=== PATIENT | female | born 1935 | race Caucasian/White ===

== ENCOUNTER → 2017-03-08 | Outpatient (REF) | payer MEDICARE | LOC: M SFHCADAM 10:17 | PROVIDERS: ATTEND Family Medicine | DX: E11.9 Type 2 diabetes mellitus without complications (principal) ==

== ENCOUNTER → 2017-06-07 | Outpatient (REF) | payer MEDICARE ==
[~2017-06-07] MED LIST: ALLO15TA; ASPI1TAB PO; BACT2OIN10 TOP; ERYTOIN8 EXT; FOLI1TAB4; GLIP5TAB8; LABE20TAB; LEVO100T5; LISI-542; METH2.5TA PO; PRED20TA; PREDOPD OD; VITA1CAP40
== END ==
LOC: M SFHCADAM 14:59
PROVIDERS: ATTEND Family Medicine
DX: E55.9 Vitamin D deficiency, unspecified (principal)

== ENCOUNTER 2017-06-16 18:36 | Emergency (ER) | payer MEDICARE ==
[~2017-06-16] VITALS: Ht 152.4 cm; Wt 69.0 kg
[2017-06-16] MEDS ORDERED: GLIP5TAB8 (18:55)
[2017-06-16] MEDS ORDERED: PRED20TA (18:55)
[2017-06-16] MEDS ORDERED: PREDOPD OD (18:55)
[2017-06-16] MEDS ORDERED: LISI-542 (18:55)
[2017-06-16] MEDS ORDERED: ALLO15TA (18:55)
[2017-06-16] MEDS ORDERED: ASPI1TAB PO (18:55)
[2017-06-16] MEDS ORDERED: LABE20TAB (18:55)
[2017-06-16] MEDS ORDERED: FOLI1TAB4 (18:55)
[2017-06-16] MEDS ORDERED: VITA1CAP40 (18:55)
[2017-06-16] MEDS ORDERED: METH2.5TA PO (18:55)
[2017-06-16] MEDS ORDERED: LEVO100T5 (18:55)
--- NOTE | 2017-06-16 21:10 | REPUSA ---
HISTORY: Trauma. TECHNIQUE: Multiple thin section helically-acquired axially-displayed and helically acquired coronall y displayed computed tomographic images of the face are obtained from the mandible through the fronta l sinuses, with images obtained at soft tissue and bone window. 2D reformatted images were performed. FINDINGS: Normal bony mineralization. No fractures. Normal orbits. Normal, clear paranasal sinuses. Normal oral and nasal cavities. Normal infratemporal fossa and deep parapharyngeal spaces with normal muscles of mastication. Normal parotid and submandibular glands. IMPRESSION: Normal examination of the face. Thank you for your kind referral of this patient
--- NOTE | 2017-06-16 21:10 | REPUSA ---
CLINICAL HISTORY: Trauma. TECHNIQUE: Multiple axial CT images were obtained through the brain without IV contrast material. COMMENTS: Note is made of a right forehead swelling. No skull fracture is seen. There is normal configuration of sella turcica. There are no intra or extra-axial collections. There is no mass effect or midline shift. There is no evidence of hematoma formation. No hydrocephalus is p resent. The ventricles are symmetrical. No abnormal calcifications are present. There is diffuse age-appropriate cerebellar and cerebral atrophy with proportionally dilated ventricl es and cortical sulci. There are bilateral periventricular and subcortical white matter hypolucencies compatible with mild c hronic microvascular disease. Otherwise, no significant focal abnormalities are seen either in the posterior fossa or supratentoria l compartment. IMPRESSION: 1. Age-appropriate cerebellar and cerebral atrophy. 2. Mild chronic microvascular disease. 3. Right forehead swelling. No skull fracture is seen. 4. No evidence of acute intracranial pathology. Thank you for your kind referral of this patient.
[2017-06-16] MEDS ORDERED: LIDOCAINE 1% SDV INJ 30 ML VIAL SC SCH (22:00)
[2017-06-16] MEDS ORDERED: LIDOCAINE W/EPINEPHRINE 1% 20ML VIAL SC ONE (22:00)
[2017-06-16] MEDS ORDERED: MUPIROCIN 2% OINT 22 GM TUBE TOP ONE (22:15)
[2017-06-16] MEDS ORDERED: ERYTHROMYCIN OPHTH OINT As Ordered ONE (22:16)
[2017-06-16] MEDS ORDERED: ERYTOIN8 EXT (22:39)
[2017-06-16] MEDS ORDERED: BACT2OIN10 TOP (22:39)
[2017-06-16] MEDS ORDERED: TETANUS/DIPHTHERIA TOX ADSORB ADULT 0.5ML SYR/VIAL (90714) IM ONE (22:45)
[2017-06-16 23:00] VITALS: BP 154/73
--- NOTE | 2017-06-17 08:47 | REP ---
Right hand series: Four views: History: Trauma. Findings: Four views of the right hand demonstrate an obliquely oriented fracture through the 5th metacarpal with some associated swelling. There is advanced diffuse osteoporosis. No other fractures seen. Chondrocalcinosis is noted at the radiocarpal articulation. Mild osteoarthritic changes are seen. Impression: 5th metacarpal fracture. Signed by Jorge Roque MD 06/17/2017 11:07 A
== END 2017-06-16 23:01 | disposition home or self-care (01) ==
LOC: EDBD 18:36 → M ED 18:36
DX: S62.306A Unspecified fracture of fifth metacarpal bone, right hand, initial encounter for closed fracture (principal); S01.81XA Laceration without foreign body of other part of head, initial encounter; W01.198A Fall on same level from slipping, tripping and stumbling with subsequent striking against other object, initial encounter; Y92.099 Unspecified place in other non-institutional residence as the place of occurrence of the external cause; Y93.01 Activity, walking, marching and hiking; Y99.9 Unspecified external cause status

== ENCOUNTER → 2017-07-07 | Outpatient (REF) | payer MEDICARE ==
[2017-07-07 21:00] LABS: ALBUMIN 3.3 GM/DL (3.2-5.2); ALBUMIN/GLOBULIN RATIO 1.22 (1.00-1.93); BILIRUBIN,TOTAL 1.2 MG/DL (0.2-1.0); CALCIUM LEVEL 8.6 MG/DL (8.8-10.2); CREATININE FOR GFR 1.26 MG/DL (0.55-1.02); GLOMERULAR FILTRATION RATE 43.2 (>32); POTASSIUM SERUM 4.6 MEQ/L (3.5-5.1)
[2017-07-07 21:02] LABS: BASO % 0.3 % (0.0-1.0); EOS # 0.2 K/mm3 (0.0-0.50); EOS % 1.7 % (0.0-3.0); LARGE UNSTAINED CELL # 0.1 K/mm3 (0.0-0.4); LARGE UNSTAINED CELL % 0.5 % (0.0-4.0); LYMPH # 0.6 K/mm3 (1.5-4.5); MEAN CORPUSCULAR HEMOGLOBIN 33.9 pg (27.0-33.0); MEAN CORPUSCULAR HGB CONC 33.2 g/dl (32.0-36.5); MEAN CORPUSCULAR VOLUME 102.1 fl (80.0-96.0); MONO # 0.3 K/mm3 (0.0-0.8); NEUTROPHILS # 9.2 K/mm3 (1.8-7.7); NEUTROPHILS % 89.5 % (36.0-66.0); PLATELET COUNT, AUTOMATED 107 k/mm3 (150-450); RED CELL DISTRIBUTION WIDTH 14.5 % (11.5-14.5); WHITE BLOOD COUNT 10.3 K/mm3 (4.0-10.0)
== END ==
LOC: M SFHCADAM 11:25
PROVIDERS: ATTEND Family Medicine
DX: R55 Syncope and collapse (principal); E11.9 Type 2 diabetes mellitus without complications

== ENCOUNTER → 2017-07-07 | Outpatient (CLI) | payer MEDICARE ==
--- NOTE | 2017-07-07 13:14 | REP ---
Clinical: Facial droop. Comparison: 06/16/2017 . Findings: Age-related atrophy and microvascular ischemic changes are appreciated. The ventricles and sulci are symmetric. Bowen-white differentiation is maintained. There is no evidence for acute intracranial hemorrhage, mass/mass effect, pathology or infarction. No extra-axial fluid collection. Calvarium is intact. Paranasal sinuses and mastoid air cells are clear. Impression: Age related atrophy and microvascular ischemic changes. No acute intracranial hemorrhage, infarction, or mass/mass effect. Signed by Nato Tran MD 07/07/2017 01:04 P
== END ==
LOC: M RAD 12:41
PROVIDERS: ATTEND Family Medicine
DX: R29.810 Facial weakness (principal); R55 Syncope and collapse; E11.9 Type 2 diabetes mellitus without complications
CPT/HCPCS: 70450; 80053; 83036; 85025; G0463

== ENCOUNTER 2017-08-11 17:15 | Emergency (ER) | payer MEDICARE ==
[~2017-08-11] VITALS: Ht 149.9 cm; Wt 68.2 kg
[2017-08-11 21:12] VITALS: BP 176/82
--- NOTE | 2017-08-12 10:16 | REP ---
Orbit series: Four views. History: Injury in a fall. Left orbit. Findings: Orbital margins are intact. The maxillary and frontal sinuses appear clear and their margins are intact as well. The patient is edentulous. No maxillary or facial fracture is appreciated. Impression: No facial fracture seen. Signed by Jorge Roque MD 08/12/2017 02:13 P
== END 2017-08-11 21:21 | disposition home or self-care (01) ==
LOC: M ED 17:15
DX: S05.12XA Contusion of eyeball and orbital tissues, left eye, initial encounter (principal); S51.012A Laceration without foreign body of left elbow, initial encounter; E03.9 Hypothyroidism, unspecified; E11.9 Type 2 diabetes mellitus without complications; J45.909 Unspecified asthma, uncomplicated; I10 Essential (primary) hypertension; W22.8XXA Striking against or struck by other objects, initial encounter; Y92.018 Other place in single-family (private) house as the place of occurrence of the external cause; Y99.9 Unspecified external cause status; Y93.9 Activity, unspecified; Z79.82 Long term (current) use of aspirin; Z79.899 Other long term (current) drug therapy; Z79.52 Long term (current) use of systemic steroids

== ENCOUNTER → 2017-11-20 | Outpatient (REF) | payer MEDICARE ==
[2017-11-20 20:53] LABS: BASO % 0.3 % (0.0-1.0); EOS # 0.4 10^3/uL (0.0-0.50); EOS % 3.9 % (0.0-3.0); HEMATOCRIT 34.8 % (36.0-47.0); HEMOGLOBIN 11.5 g/dl (12.0-16.0); IMMATURE GRANULOCYTE # 0.1 10^3/uL (0-0); IMMATURE GRANULOCYTE % 0.5 % (0-0); LYMPH # 1.2 10^3/uL (1.5-4.5); LYMPH % 11.7 % (24.0-44.0); MEAN CORPUSCULAR HEMOGLOBIN 31.9 pg (27.0-33.0); MEAN CORPUSCULAR VOLUME 96.7 fl (80.0-96.0); MONO # 0.6 10^3/uL (0.0-0.8); MONO % 6.1 % (0.0-5.0); NEUTROPHILS # 7.6 10^3/uL (1.8-7.7); NEUTROPHILS % 77.5 % (36.0-66.0); PLATELET COUNT, AUTOMATED 128 10^3/uL (150-450); RED CELL DISTRIBUTION WIDTH 13.3 % (11.5-14.5); WHITE BLOOD COUNT 9.8 10^3/uL (4.0-10.0)
[2017-11-20 21:03] LABS: ALBUMIN 3.7 GM/DL (3.2-5.2); ALBUMIN/GLOBULIN RATIO 1.23 (1.00-1.93); ALKALINE PHOSPHATASE 85 U/L (45-117); ALT/SGPT 16 U/L (12-78); ANION GAP 8 MEQ/L (8-16); AST/SGOT 18 U/L (7-37); BILIRUBIN,TOTAL 0.5 MG/DL (0.2-1.0); BLOOD UREA NITROGEN 31 MG/DL (7-18); CALCIUM LEVEL 9.1 MG/DL (8.8-10.2); CARBON DIOXIDE LEVEL 25 MEQ/L (21-32); CHLORIDE LEVEL 110 MEQ/L (98-107); CREATININE FOR GFR 1.32 MG/DL (0.55-1.02); GLOMERULAR FILTRATION RATE 40.8 (>32); GLUCOSE, FASTING 85 MG/DL (70-100); POTASSIUM SERUM 4.9 MEQ/L (3.5-5.1); SODIUM LEVEL 143 MEQ/L (136-145); TOTAL PROTEIN 6.7 GM/DL (6.4-8.2)
[2017-11-20 21:07] LABS: ESTIMATED AVERAGE GLUCOSE 123 MG/DL (60-110); HEMOGLOBIN A1c 5.9 %
[2017-11-20 21:31] LABS: MALB URINE SIEMENS 70.3 MG/L; MAU/CREAT RATIO 62.2 MCG/MG (0.0-30.0)
== END ==
LOC: M SFHCADAM 16:23
DX: E11.22 Type 2 diabetes mellitus with diabetic chronic kidney disease (principal); N18.9 Chronic kidney disease, unspecified; Z79.84 Long term (current) use of oral hypoglycemic drugs; Z63.4 Disappearance and death of family member
CPT/HCPCS: 80053

== ENCOUNTER → 2018-01-11 | Outpatient (CLI) | payer MEDICARE | LOC: M CARPUL 09:23 | DX: R01.1 Cardiac murmur, unspecified (principal); I51.7 Cardiomegaly; R93.1 Abnormal findings on diagnostic imaging of heart and coronary circulation | CPT/HCPCS: 93306 ==

== ENCOUNTER → 2018-02-14 | Outpatient (REF) | payer MEDICARE ==
[2018-02-14 20:13] LABS: ALBUMIN 3.8 GM/DL (3.2-5.2); ALBUMIN/GLOBULIN RATIO 1.41 (1.00-1.93); ALKALINE PHOSPHATASE 97 U/L (45-117); ALT/SGPT 24 U/L (12-78); ANION GAP 8 MEQ/L (8-16); AST/SGOT 23 U/L (7-37); BILIRUBIN,TOTAL 0.7 MG/DL (0.2-1.0); BLOOD UREA NITROGEN 30 MG/DL (7-18); CALCIUM LEVEL 8.8 MG/DL (8.8-10.2); CARBON DIOXIDE LEVEL 26 MEQ/L (21-32); CHLORIDE LEVEL 112 MEQ/L (98-107); CREATININE FOR GFR 1.28 MG/DL (0.55-1.30); GLOMERULAR FILTRATION RATE 42.3 (>32); GLUCOSE, FASTING 107 MG/DL (70-100); POTASSIUM SERUM 4.7 MEQ/L (3.5-5.1); SODIUM LEVEL 146 MEQ/L (136-145); TOTAL PROTEIN 6.5 GM/DL (6.4-8.2)
[2018-02-14 20:23] LABS: ESTIMATED AVERAGE GLUCOSE 97 MG/DL (60-110)
== END ==
LOC: M SFHCADAM 13:30
DX: E11.69 Type 2 diabetes mellitus with other specified complication (principal)
CPT/HCPCS: 80053

== ENCOUNTER 2018-05-08 10:59 | Emergency (ER) | payer MEDICARE | END 2018-05-08 13:07 | disposition home or self-care (01) | LOC: M ED 10:59 | DX: S22.088A Other fracture of T11-T12 vertebra, initial encounter for closed fracture (principal); M16.0 Bilateral primary osteoarthritis of hip; M85.851 Other specified disorders of bone density and structure, right thigh; M85.852 Other specified disorders of bone density and structure, left thigh; M85.842 Other specified disorders of bone density and structure, left hand; W01.0XXA Fall on same level from slipping, tripping and stumbling without subsequent striking against object, initial encounter; Y92.410 Unspecified street and highway as the place of occurrence of the external cause; I10 Essential (primary) hypertension; E11.9 Type 2 diabetes mellitus without complications; J45.909 Unspecified asthma, uncomplicated; K21.9 Gastro-esophageal reflux disease without esophagitis; E03.9 Hypothyroidism, unspecified; M81.0 Age-related osteoporosis without current pathological fracture; H33.20 Serous retinal detachment, unspecified eye; M54.9 Dorsalgia, unspecified; Z79.899 Other long term (current) drug therapy; Z79.82 Long term (current) use of aspirin | CPT/HCPCS: 73130 ==

== ENCOUNTER → 2018-05-30 | Outpatient (REF) | payer MEDICARE ==
[2018-05-30 13:32] LABS: ESTIMATED AVERAGE GLUCOSE 123 MG/DL (60-110); HEMOGLOBIN A1c 5.9 %
== END ==
LOC: M SFHCADAM 10:48
DX: E11.9 Type 2 diabetes mellitus without complications (principal)
CPT/HCPCS: 83036

== ENCOUNTER → 2018-07-06 | Outpatient (REF) | payer MEDICARE ==
[2018-07-06 21:02] LABS: MAU/CREAT RATIO 47.1 MCG/MG (0.0-30.0)
== END ==
LOC: M SFHCADAM 10:27
DX: E11.9 Type 2 diabetes mellitus without complications (principal)
CPT/HCPCS: 82043

== ENCOUNTER → 2018-09-03 | Outpatient (REF) | payer MEDICARE ==
[2018-09-03 14:43] LABS: ALBUMIN 3.3 GM/DL (3.2-5.2); ALBUMIN/GLOBULIN RATIO 1.14 (1.00-1.93); ALKALINE PHOSPHATASE 113 U/L (45-117); ALT/SGPT 16 U/L (12-78); ANION GAP 9 MEQ/L (8-16); AST/SGOT 18 U/L (7-37); BILIRUBIN,TOTAL 0.7 MG/DL (0.2-1.0); BLOOD UREA NITROGEN 31 MG/DL (7-18); CALCIUM LEVEL 8.7 MG/DL (8.8-10.2); CARBON DIOXIDE LEVEL 23 MEQ/L (21-32); CHLORIDE LEVEL 111 MEQ/L (98-107); CREATININE FOR GFR 1.43 MG/DL (0.55-1.30); GLOMERULAR FILTRATION RATE 37.2 (>32); GLUCOSE, FASTING 136 MG/DL (70-100); POTASSIUM SERUM 4.8 MEQ/L (3.5-5.1); SODIUM LEVEL 143 MEQ/L (136-145); TOTAL PROTEIN 6.2 GM/DL (6.4-8.2)
[2018-09-03 16:28] LABS: ESTIMATED AVERAGE GLUCOSE 134 MG/DL (60-110); HEMOGLOBIN A1c 6.3 %
== END ==
LOC: M SFHCADAM 10:34
DX: E11.69 Type 2 diabetes mellitus with other specified complication (principal)
CPT/HCPCS: 80053

== ENCOUNTER 2018-10-01 10:28 | Emergency (ER) | payer MEDICARE ==
[2018-10-01] MEDS: ADACEL/BOOSTRIX VACCINE (DIPHTH/PERTUSS/ACELL/TETANUS)0.5ML SYR (90715) IM (10:59)
[2018-10-01] MEDS: NS 1,000 ML IV (11:30)
[2018-10-01 11:33] LABS: BASO % 0.2 % (0.0-1.0); EOS # 0.3 10^3/uL (0.0-0.50); EOS % 3.8 % (0.0-3.0); HEMATOCRIT 29.8 % (36.0-47.0); HEMOGLOBIN 9.9 g/dl (12.0-15.5); IMMATURE GRANULOCYTE % 0.4 % (0-3.0); LYMPH # 0.8 10^3/uL (1.5-4.5); LYMPH % 9.3 % (24.0-44.0); MEAN CORPUSCULAR HEMOGLOBIN 33.4 pg (27.0-33.0); MEAN CORPUSCULAR HGB CONC 33.2 g/dl (32.0-36.5); MEAN CORPUSCULAR VOLUME 100.7 fl (80.0-96.0); MONO # 0.4 10^3/uL (0.0-0.8); MONO % 4.5 % (0.0-5.0); NEUTROPHILS # 7.4 10^3/uL (1.8-7.7); NEUTROPHILS % 81.8 % (36.0-66.0); RED BLOOD COUNT 2.96 10^6/uL (4.00-5.40); RED CELL DISTRIBUTION WIDTH 13.9 % (11.5-14.5)
[2018-10-01] MEDS: ONDANSETRON 4MG/2ML VIAL (J2405) IV (11:41)
[2018-10-01] MEDS: MORPHINE 2 MG/ML 1ML SYRINGE (J2270) IV ×2 (11:41→12:07)
[2018-10-01 11:59] LABS: ALBUMIN 3.3 GM/DL (3.2-5.2); ALKALINE PHOSPHATASE 98 U/L (45-117); ALT/SGPT 15 U/L (12-78); ANION GAP 6 MEQ/L (8-16); AST/SGOT 19 U/L (7-37); BILIRUBIN,TOTAL 0.9 MG/DL (0.2-1.0); BLOOD UREA NITROGEN 36 MG/DL (7-18); CALCIUM LEVEL 8.9 MG/DL (8.8-10.2); CARBON DIOXIDE LEVEL 24 MEQ/L (21-32); CHLORIDE LEVEL 113 MEQ/L (98-107); CREATININE FOR GFR 1.29 MG/DL (0.55-1.30); GLOMERULAR FILTRATION RATE 41.9 (>32); GLUCOSE, FASTING 180 MG/DL (70-100); INR 1.06; POTASSIUM SERUM 4.6 MEQ/L (3.5-5.1); PROTHROMBIN TIME 13.9 SECONDS (12.1-14.4); SODIUM LEVEL 143 MEQ/L (136-145); TOTAL PROTEIN 6.3 GM/DL (6.4-8.2)
[2018-10-01 12:00] LABS: PLATELET COUNT, AUTOMATED 86 10^3/uL (150-450)
[2018-10-01 12:48] LABS: IMMATURE PLATELET FRACTION % 2.2 % (0.0-9.6)
== END 2018-10-01 12:08 | disposition short-term general hospital (02) ==
LOC: M ED 10:28
DX: S02.2XXA Fracture of nasal bones, initial encounter for closed fracture (principal); S00.93XA Contusion of unspecified part of head, initial encounter; W18.39XA Other fall on same level, initial encounter; Y92.410 Unspecified street and highway as the place of occurrence of the external cause; I10 Essential (primary) hypertension; E11.9 Type 2 diabetes mellitus without complications; J45.909 Unspecified asthma, uncomplicated; E07.9 Disorder of thyroid, unspecified; Z79.899 Other long term (current) drug therapy; Z79.890 Hormone replacement therapy
CPT/HCPCS: 90715

== ENCOUNTER → 2018-10-19 | Outpatient (REF) | payer MEDICARE ==
[2018-10-19 12:17] LABS: BASO % 0.4 % (0.0-1.0); EOS # 0.3 10^3/uL (0.0-0.50); EOS % 3.2 % (0.0-3.0); HEMATOCRIT 26.7 % (36.0-47.0); HEMOGLOBIN 8.7 g/dl (12.0-15.5); IMMATURE GRANULOCYTE % 0.4 % (0-3.0); LYMPH # 1.1 10^3/uL (1.5-4.5); LYMPH % 12.6 % (24.0-44.0); MEAN CORPUSCULAR HEMOGLOBIN 33.1 pg (27.0-33.0); MEAN CORPUSCULAR HGB CONC 32.6 g/dl (32.0-36.5); MEAN CORPUSCULAR VOLUME 101.5 fl (80.0-96.0); MONO # 0.4 10^3/uL (0.0-0.8); MONO % 4.8 % (0.0-5.0); NEUTROPHILS # 6.7 10^3/uL (1.8-7.7); NEUTROPHILS % 78.6 % (36.0-66.0); PLATELET COUNT, AUTOMATED 135 10^3/uL (150-450); RED BLOOD COUNT 2.63 10^6/uL (4.00-5.40); RED CELL DISTRIBUTION WIDTH 14.2 % (11.5-14.5); WHITE BLOOD COUNT 8.5 10^3/uL (4.0-10.0)
[2018-10-19 12:21] LABS: ANION GAP 11 MEQ/L (8-16); BLOOD UREA NITROGEN 26 MG/DL (7-18); CALCIUM LEVEL 8.5 MG/DL (8.8-10.2); CARBON DIOXIDE LEVEL 20 MEQ/L (21-32); CHLORIDE LEVEL 111 MEQ/L (98-107); GLOMERULAR FILTRATION RATE 38.1 (>32); GLUCOSE, FASTING 166 MG/DL (70-100); POTASSIUM SERUM 4.7 MEQ/L (3.5-5.1); SODIUM LEVEL 142 MEQ/L (136-145)
== END ==
LOC: M SFHCADAM 10:16
DX: S06.5X0D Traumatic subdural hemorrhage without loss of consciousness, subsequent encounter (principal)
CPT/HCPCS: 80048

== ENCOUNTER → 2018-10-19 | Outpatient (CLI) | payer MEDICARE | LOC: M ADAMS 10:24 | DX: S06.5X0D Traumatic subdural hemorrhage without loss of consciousness, subsequent encounter (principal) ==

== ENCOUNTER → 2018-12-04 | Outpatient (CLI) | payer MEDICARE ==
[~2018-12-04] MED LIST changes: +ACID1TAB10 PO; +CVS8.6TA5 PO; +FOLI1TAB11; -FOLI1TAB4; +HYDR200T3 PO; +METH2.5T48 PO; -METH2.5TA PO; +MIRA3350 PO; +NITR0.4S14 SL; +STOO100C PO; -VITA1CAP40; +VITA50005; +ZYLO300T6 PO
--- NOTE | 2018-12-04 10:00 | REP ---
CT Head without contrast HISTORY: Subdural hematoma COMPARISON: 10/01/2018 Areas of decreased attenuation are present in the periventricular white matter. This represents small-vessel ischemic disease. There is no intraparenchymal hemorrhage, acute infarct, mass or midline shift. The ventricular system the ventricular system and cortical sulci are dilated consistent with minimal volume loss. There is no extra cerebral collection. There is no fracture. The visualized sinuses are clear. IMPRESSION: 1. Small vessel ischemic disease. 2. Minimal volume loss. 3. There has been resolution of the previously noted right frontal subdural hematoma Electronically Signed by Michael Gray MD 12/04/2018 09:51 A
== END ==
LOC: M RAD 09:28
PROVIDERS: ATTEND Family Medicine
DX: I62.00 Nontraumatic subdural hemorrhage, unspecified (principal)

== ENCOUNTER → 2018-12-13 | Outpatient (CLI) | payer MEDICARE ==
--- NOTE | 2018-12-13 14:47 | REP ---
AP LATERAL RIGHT HIP, TWO VIEWS: HISTORY: Hip pain. There is no acute fracture or dislocation. There is minimal narrowing of the joint space with associated osteophyte formation. The bony structure is osteopenic. IMPRESSION:Degenerative changes as described above. Electronically Signed by Michael Gray MD 12/13/2018 02:55 P
--- NOTE | 2018-12-13 14:49 | REP ---
LUMBAR SPINE, THREE VIEWS: HISTORY: Back pain. There is no acute fracture or subluxation. There is an old compression fracture of the T11 vertebral body with severe height loss. The lumbar intervertebral discs are decreased in height. Vacuum phenomenon is present at the L1-2 level. These findings are consistent with disc degeneration. Osteophytes are present throughout the lumbar spine. There is scoliosis convex to the right. The bony structure is osteopenic. IMPRESSION: Degenerative change as described above. Electronically Signed by Michael Gray MD 12/13/2018 02:55 P
== END ==
LOC: M ADAMS 10:24
PROVIDERS: ATTEND Family Medicine
DX: M25.78 Osteophyte, vertebrae (principal); M25.751 Osteophyte, right hip; M25.551 Pain in right hip; M54.41 Lumbago with sciatica, right side

== ENCOUNTER → 2018-12-13 | Outpatient (REF) | payer MEDICARE ==
[2018-12-13 15:11] LABS: HEMOGLOBIN A1c 5.7 %
== END ==
LOC: M SFHCADAM 11:11
PROVIDERS: ATTEND Family Medicine
DX: E11.9 Type 2 diabetes mellitus without complications (principal)

== ENCOUNTER → 2019-03-22 | Outpatient (REF) | payer MEDICARE ==
[~2019-03-22] MED LIST changes: -ALLO15TA; +ALLO300T2; -ASPI1TAB PO; +ASPI81TA26 PO; -CVS8.6TA5 PO; +SENN-85 PO
[2019-03-22 21:15] LABS: BLOOD UREA NITROGEN 29 MG/DL (7-18); C REACTIVE PROTEIN QUANTITATIV 1.92 MG/DL (0.00-0.30); CALCIUM LEVEL 8.6 MG/DL (8.8-10.2); CARBON DIOXIDE LEVEL 24 MEQ/L (21-32); CHLORIDE LEVEL 112 MEQ/L (98-107); CREATININE FOR GFR 1.27 MG/DL (0.55-1.30); GLOMERULAR FILTRATION RATE 42.6 (>32); GLUCOSE, FASTING 113 MG/DL (70-100); POTASSIUM SERUM 5.1 MEQ/L (3.5-5.1); RHEUMATOID FACTOR QUANT < 10.0 IU/ML (<15.0); SODIUM LEVEL 143 MEQ/L (136-145)
[2019-03-22 21:21] LABS: HEMOGLOBIN A1c 5.6 %
== END ==
LOC: M SFHCADAM 11:41
PROVIDERS: ATTEND Family Medicine
DX: M06.9 Rheumatoid arthritis, unspecified (principal); E11.9 Type 2 diabetes mellitus without complications; S06.5X0D Traumatic subdural hemorrhage without loss of consciousness, subsequent encounter

== ENCOUNTER → 2019-06-05 | Outpatient (REF) | payer MEDICARE ==
[~2019-06-05] MED LIST changes: +MM S100C PO; -STOO100C PO
== END ==
LOC: M SFHCADAM 10:56
PROVIDERS: ATTEND Physician Assistant Medical
DX: M15.9 Polyosteoarthritis, unspecified (principal)

== ENCOUNTER → 2019-09-19 | Outpatient (REF) | payer MEDICARE ==
[2019-09-19 17:18] LABS: BASO % 0.3 % (0.0-1.0); EOS # 0.2 10^3/uL (0.0-0.5); EOS % 2.5 % (0.0-3.0); HEMATOCRIT 31.6 % (36.0-47.0); HEMOGLOBIN 10.3 g/dl (12.0-15.5); LYMPH # 1.1 10^3/uL (1.5-5.0); LYMPH % 11.1 % (24.0-44.0); MEAN CORPUSCULAR HEMOGLOBIN 34.7 pg (27.0-33.0); MEAN CORPUSCULAR HGB CONC 32.6 g/dl (32.0-36.5); MEAN CORPUSCULAR VOLUME 106.4 fl (80.0-96.0); MONO # 0.5 10^3/uL (0.0-0.8); MONO % 5.1 % (0.0-5.0); NEUTROPHILS # 7.6 10^3/uL (1.5-8.5); NEUTROPHILS % 80.2 % (36.0-66.0); PLATELET COUNT, AUTOMATED 119 10^3/uL (150-450); RED BLOOD COUNT 2.97 10^6/uL (4.00-5.40); WHITE BLOOD COUNT 9.5 10^3/uL (4.0-10.0)
[2019-09-19 17:26] LABS: HEMOGLOBIN A1c 5.8 %
[2019-09-19 17:48] LABS: ALBUMIN 3.7 GM/DL (3.2-5.2); BILIRUBIN,TOTAL 0.6 MG/DL (0.2-1.0); CALCIUM LEVEL 9.2 MG/DL (8.8-10.2); CREATININE FOR GFR 1.41 MG/DL (0.55-1.30); GLOMERULAR FILTRATION RATE 37.7 (>32); MAU/CREAT RATIO 104.7 MCG/MG (0.0-30.0); POTASSIUM SERUM 5.4 MEQ/L (3.5-5.1); THYROID STIMULATING HORMONE 2.12 uIU/ML (0.358-3.740); TOTAL 25(OH) VITAMIN D 26.3 NG/ML (30.0-100.0); TOTAL PROTEIN 6.5 GM/DL (6.4-8.2)
[2019-09-19 20:21] LABS: ERYTHROCYTE SEDIMENTATION RATE 60 mm/hr (0-30)
== END ==
LOC: M SFHCADAM 12:17
PROVIDERS: ATTEND Family Medicine
DX: E11.9 Type 2 diabetes mellitus without complications (principal); I12.9 Hypertensive chronic kidney disease with stage 1 through stage 4 chronic kidney disease, or unspecified chronic kidney disease; N18.9 Chronic kidney disease, unspecified; E55.9 Vitamin D deficiency, unspecified

== ENCOUNTER → 2021-01-22 | Outpatient (CLI) | payer MEDICARE ==
[~2021-01-22] MED LIST changes: -LISI-542; +LISI-898
--- NOTE | 2021-01-22 15:29 | REP ---
INDICATION: PAIN IN RIGHT KNEE COMPARISON: None. TECHNIQUE: Four views right knee. FINDINGS: There is no evidence of acute fracture, dislocation, or intrinsic bone disease.There is moderate diffuse joint space narrowing with subchondral sclerosis and spurring. 3 subcentimeter rounded calcifications are seen along the medial femoral condyle. Ill-defined periarticular calcifications are seen along the lateral margin of the joint. Diffuse vascular calcifications are present. There is mild superior and inferior patellar spurring. There is moderate joint effusion. IMPRESSION: No fracture or dislocation. Moderate arthritic changes. Moderate joint effusion. <Electronically signed by Agustin Bowen > 01/22/21 [id number]
== END ==
LOC: M ADAMS 11:12
PROVIDERS: ATTEND Physician Assistant
DX: M17.11 Unilateral primary osteoarthritis, right knee (principal); M25.461 Effusion, right knee; M25.561 Pain in right knee; G89.29 Other chronic pain; E11.9 Type 2 diabetes mellitus without complications; N18.9 Chronic kidney disease, unspecified; I12.9 Hypertensive chronic kidney disease with stage 1 through stage 4 chronic kidney disease, or unspecified chronic kidney disease; E03.9 Hypothyroidism, unspecified

== ENCOUNTER → 2021-01-22 | Outpatient (REF) | payer MEDICARE ==
[2021-01-22 16:43] LABS: BASO % 0.4 % (0.0-1.0); EOS # 0.4 10^3/uL (0.0-0.5); EOS % 4.6 % (0.0-3.0); HEMATOCRIT 33.7 % (36.0-47.0); HEMOGLOBIN 10.5 g/dl (12.0-15.5); LYMPH # 1.2 10^3/uL (1.5-5.0); MEAN CORPUSCULAR HEMOGLOBIN 33.1 pg (27.0-33.0); MEAN CORPUSCULAR HGB CONC 31.2 g/dl (32.0-36.5); MEAN CORPUSCULAR VOLUME 106.3 fl (80.0-96.0); MONO # 0.5 10^3/uL (0.0-0.8); MONO % 6.3 % (2.0-8.0); NEUTROPHILS # 5.5 10^3/uL (1.5-8.5); NEUTROPHILS % 72.3 % (36.0-66.0); PLATELET COUNT, AUTOMATED 106 10^3/uL (150-450); RED BLOOD COUNT 3.17 10^6/uL (4.00-5.40); WHITE BLOOD COUNT 7.6 10^3/uL (4.0-10.0)
[2021-01-22 17:23] LABS: ALBUMIN 3.8 GM/DL (3.2-5.2); ALT/SGPT 13 U/L (12-78); BILIRUBIN,TOTAL 0.8 MG/DL (0.2-1.0); BLOOD UREA NITROGEN 23 MG/DL (7-18); C REACTIVE PROTEIN QUANTITATIV 0.69 MG/DL (0.00-0.30); CALCIUM LEVEL 9.1 MG/DL (8.8-10.2); CARBON DIOXIDE LEVEL 27 MEQ/L (21-32); CHLORIDE LEVEL 112 MEQ/L (98-107); CREATININE FOR GFR 1.27 MG/DL (0.55-1.30); FOLATE > 24.0 NG/ML; FREE T4 1.12 NG/DL (0.76-1.46); GLOMERULAR FILTRATION RATE 42.4 (>32); GLUCOSE, FASTING 107 MG/DL (70-100); POTASSIUM SERUM 5.2 MEQ/L (3.5-5.1); SODIUM LEVEL 144 MEQ/L (136-145); TOTAL 25(OH) VITAMIN D 18.8 NG/ML (30.0-100.0); TOTAL PROTEIN 6.3 GM/DL (6.4-8.2); VITAMIN B12 LEVEL 316 PG/ML
[2021-01-22 19:33] LABS: ERYTHROCYTE SEDIMENTATION RATE 39 mm/hr (0-30)
== END ==
LOC: M SFHCADAM 11:05
PROVIDERS: ATTEND Physician Assistant
DX: M25.561 Pain in right knee (principal); G89.29 Other chronic pain; E11.9 Type 2 diabetes mellitus without complications; N18.9 Chronic kidney disease, unspecified; I12.9 Hypertensive chronic kidney disease with stage 1 through stage 4 chronic kidney disease, or unspecified chronic kidney disease; E03.9 Hypothyroidism, unspecified; Z79.899 Other long term (current) drug therapy

== ENCOUNTER → 2021-01-28 | Outpatient (REF) | payer MEDICARE ==
[2021-01-28 21:05] LABS: FERRITIN 99 NG/ML (8-252); IRON (FE) 105 UG/DL (50-170); PERCENT SATURATION 44.9 % (13.2-45.0); RHEUMATOID FACTOR QUANT < 10.0 IU/ML (<15.0); TOTAL IRON BINDING CAPACITY 234 UG/DL (250-450)
[2021-01-30 20:06] LABS: ANA (HEP2) Negative (.); FREE KAPPA LIGHT CHAINS SERUM 37.2 mg/L (3.3-19.4); FREE LAMBDA LIGHT CHAINS SERUM 27.1 mg/L (5.7-26.3); KAPPA/LAMBDA RATIO SERUM 1.37 (0.26-1.65)
== END ==
LOC: M SFHCADAM 11:45
PROVIDERS: ATTEND Physician Assistant
DX: M06.9 Rheumatoid arthritis, unspecified (principal); D69.6 Thrombocytopenia, unspecified; D53.9 Nutritional anemia, unspecified
CPT/HCPCS: 20610; 82728; 83550; 83883; 86038; 86431; J1030

== ENCOUNTER → 2021-05-20 | Outpatient (CLI) | payer MEDICARE ==
--- NOTE | 2021-05-20 11:01 | REP ---
INDICATION: PAIN RIGHT KNEE. COMPARISON: right knee 01/22/2021 TECHNIQUE: Standing AP view bilateral knees FINDINGS: There is bone on bone narrowing of the medial joint compartment of both knees as well as the lateral compartment. Sclerosis of the subchondral bone of these 2 compartments in each knee and large marginal osteophytes at the joint margins noted. There are ossific densities adjacent to the lateral femoral condyle of the left knee from old avulsions. Bones are demineralized. I see no acute fracture. 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 <Electronically signed by Beto Singh > 05/20/21 [id number]
== END ==
LOC: M SOG 09:31
PROVIDERS: ATTEND Orthopaedic Surgery Adult Reconstructive Orthopaedic Surgery
DX: M25.561 Pain in right knee (principal); M25.562 Pain in left knee

== ENCOUNTER → 2021-06-17 | Outpatient (REF) | payer MEDICARE ==
[2021-06-17 17:06] LABS: BASO % 0.5 % (0.0-1.0); EOS # 0.3 10^3/uL (0.0-0.5); EOS % 4.7 % (0.0-3.0); HEMATOCRIT 31.7 % (36.0-47.0); LYMPH # 1.4 10^3/uL (1.5-5.0); LYMPH % 22.3 % (24.0-44.0); MEAN CORPUSCULAR HGB CONC 31.5 g/dl (32.0-36.5); MEAN CORPUSCULAR VOLUME 104.6 fl (80.0-96.0); MONO # 0.6 10^3/uL (0.0-0.8); MONO % 9.7 % (2.0-8.0); NEUTROPHILS # 3.8 10^3/uL (1.5-8.5); NEUTROPHILS % 61.7 % (36.0-66.0); PLATELET COUNT, AUTOMATED 119 10^3/uL (150-450); RED BLOOD COUNT 3.03 10^6/uL (4.00-5.40); WHITE BLOOD COUNT 6.2 10^3/uL (4.0-10.0)
[2021-06-17 17:27] LABS: ALBUMIN 3.4 GM/DL (3.2-5.2); BILIRUBIN,TOTAL 0.3 MG/DL (0.2-1.0); CALCIUM LEVEL 8.6 MG/DL (8.8-10.2); CREATININE FOR GFR 1.73 MG/DL (0.55-1.30); GLOMERULAR FILTRATION RATE 29.7 (>32); POTASSIUM SERUM 5.1 MEQ/L (3.5-5.1); TOTAL PROTEIN 6.1 GM/DL (6.4-8.2)
[2021-06-17 17:50] LABS: HEMOGLOBIN A1c 6.1 %
== END ==
LOC: M SFHCADAM 13:51
PROVIDERS: ATTEND Physician Assistant
DX: M17.11 Unilateral primary osteoarthritis, right knee (principal); R19.7 Diarrhea, unspecified; D53.9 Nutritional anemia, unspecified; E11.69 Type 2 diabetes mellitus with other specified complication; J45.909 Unspecified asthma, uncomplicated
CPT/HCPCS: 80053; 83036; 85025; G0463

== ENCOUNTER → 2021-07-14 | Outpatient (REF) | payer MEDICARE ==
[2021-07-14 13:45] LABS: HEMOGLOBIN A1c 6.2 %
[2021-07-14 14:03] LABS: ALBUMIN 3.2 GM/DL (3.2-5.2); BILIRUBIN,TOTAL 0.6 MG/DL (0.2-1.0); CALCIUM LEVEL 8.7 MG/DL (8.8-10.2); CREATININE FOR GFR 1.2 MG/DL (0.55-1.30); GLOMERULAR FILTRATION RATE 45.2 (>32); POTASSIUM SERUM 4.8 MEQ/L (3.5-5.1); TOTAL PROTEIN 6.1 GM/DL (6.4-8.2)
== END ==
LOC: M SFHCADAM 10:53
PROVIDERS: ATTEND Family Medicine
DX: E11.9 Type 2 diabetes mellitus without complications (principal); R19.7 Diarrhea, unspecified; R79.89 Other specified abnormal findings of blood chemistry

== ENCOUNTER 2023-05-23 07:16 | Emergency (ER) | payer MEDICARE ==
[~2023-05-23] VITALS: Ht 134.6 cm; Wt 62.7 kg
[~2023-05-23 07:16] MED LIST changes: -FOLI1TAB11; +FOLI1TAB11 PO; -HYDR200T3 PO; +HYDR200T46 PO; -LABE20TAB; +LABE20TAB PO; -LEVO100T5; +LEVO100T5 PO; -LISI-898; +LISI5TAB11
[2023-05-23] MEDS ORDERED: ACETAMINOPHEN 1000MG 100ML IV BAG IV ONE (08:05)
[2023-05-23 08:33] LABS: BASO % 0.2 % (0.0-1.0); EOS # 0.2 10^3/uL (0.0-0.5); EOS % 2.6 % (0.0-3.0); HEMATOCRIT 29.6 % (36.0-47.0); HEMOGLOBIN 9.8 g/dl (12.0-15.5); LYMPH # 0.8 10^3/uL (1.5-5.0); LYMPH % 8.4 % (24.0-44.0); MEAN CORPUSCULAR HEMOGLOBIN 32.6 pg (27.0-33.0); MEAN CORPUSCULAR HGB CONC 33.1 g/dl (32.0-36.5); MEAN CORPUSCULAR VOLUME 98.3 fl (80.0-96.0); MONO # 0.6 10^3/uL (0.0-0.8); MONO % 6.4 % (2.0-8.0); NEUTROPHILS # 7.6 10^3/uL (1.5-8.5); NEUTROPHILS % 81.9 % (36.0-66.0); RED BLOOD COUNT 3.01 10^6/uL (4.00-5.40); WHITE BLOOD COUNT 9.3 10^3/uL (4.0-10.0)
[2023-05-23] MEDS ORDERED: VITA400T15 PO (08:36)
[2023-05-23] MEDS ORDERED: MONT10TA97 PO (08:36)
[2023-05-23] MEDS ORDERED: HYDR12.55 PO (08:36)
[2023-05-23] MEDS ORDERED: OMEP40CA4 PO (08:36)
[2023-05-23] MEDS ORDERED: LOSA100T46 PO (08:36)
[2023-05-23 08:56] LABS: PLATELET COUNT, AUTOMATED 98 10^3/uL (150-450)
[2023-05-23 08:58] LABS: ALBUMIN 3.5 G/DL (3.2-5.2); ALKALINE PHOSPHATASE 120 U/L (46-116); ALT/SGPT < 9 U/L (7.0-40); AST/SGOT 10 U/L (<34); BILIRUBIN,DIRECT 0.2 MG/DL (<0.4); BILIRUBIN,TOTAL 0.7 MG/DL (0.3-1.2); BLOOD UREA NITROGEN 34 MG/DL (9-23); CALCIUM LEVEL 8.6 MG/DL (8.3-10.6); CARBON DIOXIDE LEVEL 22 MMOL/L (20-31); CHLORIDE LEVEL 111 MMOL/L (98-107); CREATININE FOR GFR 1.45 MG/DL (0.55-1.30); GLOMERULAR FILTRATION RATE 36.2 (>32); GLUCOSE, FASTING 142 MG/DL (74-106); POTASSIUM SERUM 4.7 MMOL/L (3.5-5.1); SODIUM LEVEL 143 MMOL/L (136-145); TOTAL PROTEIN 6.2 G/DL (5.7-8.2)
[2023-05-23 09:02] LABS: THYROID STIMULATING HORMONE 8.724 uIU/ML (0.55-4.78)
[2023-05-23 09:03] LABS: RSV AMPLIFICATION NEGATIVE (NEGATIVE)
[2023-05-23] MEDS: MORPHINE 2 MG/ML 1ML VIAL IV PRN ×2 (09:07→10:35)
[2023-05-23] MEDS ORDERED: PIPERACILLIN/TAZOBACTAM SOD 3.375 GM in D5W MINI-BAG PLUS 50 ML IV ONE (09:45)
[2023-05-23] MEDS ORDERED: ERGO500029 PO (10:21)
[2023-05-23] MEDS ORDERED: TREL1AER PO (10:21)
[2023-05-23] MEDS ORDERED: HOME MED LIST COMPLETE! XX SCH (10:25)
[2023-05-23] MEDS: hydrALAZINE 20MG/ML 1ML VIAL IV PRN ×2 (10:34→13:53)
[2023-05-23 11:47] LABS: ERYTHROCYTE SEDIMENTATION RATE 31 mm/hr (0-30)
[2023-05-23 12:29] LABS: HEMOGLOBIN A1c 6.2 % (4.0-6.0)
[2023-05-23 13:53] VITALS: BP 203/81
[2023-05-23] MEDS ORDERED: AMOX875T PO (13:58)
[2023-05-23 14:31] VITALS: BP 114/56; TEMP 98.2
[2023-05-23 14:32] VITALS: O2SAT 97
== END 2023-05-23 15:10 | disposition left against medical advice (07) ==
LOC: M ED 07:16 → EDBD 07:16 → M ED 15:10
DX: I16.0 Hypertensive urgency (principal); L03.115 Cellulitis of right lower limb; I87.2 Venous insufficiency (chronic) (peripheral); I12.9 Hypertensive chronic kidney disease with stage 1 through stage 4 chronic kidney disease, or unspecified chronic kidney disease; E11.9 Type 2 diabetes mellitus without complications; N18.30 Chronic kidney disease, stage 3 unspecified; M06.9 Rheumatoid arthritis, unspecified; J45.909 Unspecified asthma, uncomplicated; Z88.5 Allergy status to narcotic agent; Z79.899 Other long term (current) drug therapy
CPT/HCPCS: 71045; 73630; 80048; 80076; 83036; 83605; 83880; 84145; 84443; 85025; 85049; 85055; 85652; 86140; 87040; 87631; 93005; 93041; 93925; 94760; 96365; 96366; 96367; 96375; 99285; J0131; J0360; J2543

== ENCOUNTER 2023-09-15 12:12 | Emergency (ER) | payer MEDICARE ==
[~2023-09-15] VITALS: Ht 154.9 cm; Wt 66.1 kg
[~2023-09-15 12:12] MED LIST changes: +AMOX875T PO; +ERGO500029 PO; +GLIP5TAB17; -GLIP5TAB8; +HYDR12.55 PO; +LOSA100T46 PO; +MONT10TA97 PO; +OMEP40CA4 PO; +TREL1AER PO; +VITA400T15 PO
[2023-09-15] MEDS ORDERED: TREL1AER PO (12:38)
[2023-09-15] MEDS ORDERED: ONDANSETRON 4MG 2ML VIAL IV ONE (13:20)
[2023-09-15] MEDS ORDERED: MORPHINE 4 MG/ML 1ML VIAL IV ONE ×2 (13:20→14:35)
[2023-09-15] MEDS ORDERED: BOOSTRIX VACCINE (TETANUS/DIPHTH/ACEL. PERTUSSIS) 0.5ML SYR IM ONE (13:20)
[2023-09-15] MEDS ORDERED: hydrALAZINE 20MG/ML 1ML VIAL IV STA (13:20)
[2023-09-15] MEDS ORDERED: LOSARTAN 50MG TABLET PO ONE (13:25)
[2023-09-15 14:55] LABS: RSV AMPLIFICATION NEGATIVE (NEGATIVE)
[2023-09-15] MEDS ORDERED: fentaNYL 100 MCG/2 ML INJECTION IV ONE (15:10)
[2023-09-15 15:20] VITALS: BP 227/99; TEMP 97; O2SAT 96
== END 2023-09-15 15:28 | disposition short-term general hospital (02) ==
LOC: EDSEX 12:12 → EDBD 12:12 → M ED 12:12
DX: S01.81XA Laceration without foreign body of other part of head, initial encounter (principal); S12.031A Nondisplaced posterior arch fracture of first cervical vertebra, initial encounter for closed fracture; S12.112A Nondisplaced Type II dens fracture, initial encounter for closed fracture; W01.0XXA Fall on same level from slipping, tripping and stumbling without subsequent striking against object, initial encounter; Y92.009 Unspecified place in unspecified non-institutional (private) residence as the place of occurrence of the external cause; I10 Essential (primary) hypertension; E03.9 Hypothyroidism, unspecified; K21.9 Gastro-esophageal reflux disease without esophagitis; Z79.899 Other long term (current) drug therapy; Z88.5 Allergy status to narcotic agent
CPT/HCPCS: 70450; 70486; 72125; 73060; 87631; 90471; 90715; 96374; 96375; 96376; 99285; J0360; J2405; J3010